=== PATIENT | female | born 1965 | race Two or more races ===

== ENCOUNTER 2017-12-28 07:16 | Day surgery (SDC) | payer MEDICAID ==
[2017-12-28] MEDS ORDERED: Lactated Ringer's 500 ML IV ONE (08:08)
[2017-12-28 08:25] VITALS: TEMP 97
[2017-12-28] MEDS ORDERED: Propofol 10 mg/ml Inj (20 ML) ONE (09:07)
[2017-12-28 09:37] VITALS: O2SAT 100
[2017-12-28 09:49] VITALS: BP 115/63; PULSE 89; RESP 21
== END 2017-12-28 10:04 | disposition home or self-care (01) ==
LOC: H.ENDO 07:16
PROVIDERS: ATTEND Internal Medicine Gastroenterology
DX: Z12.11 Encounter for screening for malignant neoplasm of colon (principal); K64.0 First degree hemorrhoids
CPT/HCPCS: 45378; J2001; J2704; J7120